=== PATIENT | male | born 1995 | race Caucasian/White ===

== ENCOUNTER 2018-03-06 23:53 | Emergency (ER) | payer OTHER ==
[~2018-03-06] VITALS: Ht 175.3 cm; Wt 140.6 kg
[~2018-03-06 23:53] MED LIST: DOLOGEN CAPLET1 TAB PO; PREVACID30 MG PO; TRAM1TAB98 PO
[2018-03-07] MEDS ORDERED: AMOXICILLIN125 MG (00:21)
[2018-03-07] MEDS ORDERED: CEFUROXIME500 MG PO (02:11)
[2018-03-07] MEDS ORDERED: TUSSIN DM LIQU118 ML PO (02:11)
== END 2018-03-07 02:18 | disposition home or self-care (01) ==
LOC: ER 23:53
DX: J06.9 Acute upper respiratory infection, unspecified (principal)

== ENCOUNTER 2019-01-17 16:15 | Emergency (ER) | payer OTHER ==
[~2019-01-17] VITALS: Ht 175.3 cm; Wt 145.1 kg
[~2019-01-17 16:15] MED LIST changes: +AMOXICILLIN125 MG; +CEFUROXIME500 MG PO; +TUSSIN DM LIQU118 ML PO
== END 2019-01-17 18:42 | disposition home or self-care (01) ==
LOC: ER 16:15
DX: J02.8 Acute pharyngitis due to other specified organisms (principal); H66.91 Otitis media, unspecified, right ear

== ENCOUNTER 2019-01-25 16:12 | Emergency (ER) | payer OTHER ==
[~2019-01-25] VITALS: Ht 175.3 cm; Wt 142.9 kg
== END 2019-01-25 21:51 | disposition home or self-care (01) ==
LOC: ER 16:12
DX: J11.1 Influenza due to unidentified influenza virus with other respiratory manifestations (principal)

== ENCOUNTER 2019-04-18 12:29 | Emergency (ER) | payer OTHER ==
[~2019-04-18] VITALS: Ht 175.3 cm; Wt 140.6 kg
[2019-04-18] MEDS ORDERED: ORPHENADRINE C100 MG PO (16:01)
[2019-04-18] MEDS ORDERED: ZITHROMAX500 MG PO (16:01)
== END 2019-04-18 16:06 | disposition home or self-care (01) ==
LOC: ER 12:29
DX: I10 Essential (primary) hypertension (principal); R51 Headache

== ENCOUNTER 2019-08-14 10:44 | Emergency (ER) | payer OTHER ==
[~2019-08-14] VITALS: Ht 175.3 cm; Wt 140.6 kg
[~2019-08-14 10:44] MED LIST changes: +ORPHENADRINE C100 MG PO; +ZITHROMAX500 MG PO
== END 2019-08-14 13:50 | disposition home or self-care (01) ==
LOC: ER 10:44
DX: B34.9 Viral infection, unspecified (principal)

== ENCOUNTER 2024-11-05 23:06 | Emergency (ER) | payer OTHER ==
[~2024-11-05] VITALS: Ht 175.3 cm; Wt 152.0 kg
[2024-11-05] MEDS ORDERED: DIOVAN160 M1 PO (23:10)
[2024-11-05] MEDS ORDERED: TOPROL XL25 M1 PO (23:10)
[2024-11-06] MEDS ORDERED: PEPCID40 MG PO (00:21)
[2024-11-06] MEDS ORDERED: LEVSIN/SL0.125 MG SL (00:21)
== END 2024-11-06 00:29 | disposition home or self-care (01) ==
LOC: ER 23:08
DX: R10.11 Right upper quadrant pain (principal); Z88.6 Allergy status to analgesic agent

== ENCOUNTER 2024-12-17 22:06 | Emergency (ER) | payer OTHER ==
[~2024-12-17] VITALS: Ht 175.3 cm; Wt 142.9 kg
[~2024-12-17 22:06] MED LIST changes: +DIOVAN160 M1 PO; +LEVSIN/SL0.125 MG SL; +PEPCID40 MG PO; +TOPROL XL25 M1 PO
[2024-12-17] MEDS ORDERED: MORPHINE SULFATE 2 MG/ML SYRINGE IV ONE (23:00)
[2024-12-17] MEDS ORDERED: FAMOtidine 10 MG/ML (4ML VIAL) IV ONE (23:00)
[2024-12-17] MEDS ORDERED: FAMOTIDINE/PF 20 MG/2 ML VIAL ONE (23:10)
[2024-12-18 00:25] LABS: HEMATOCRIT 45.5 % (39.0-48.0); HEMOGLOBIN 15.3 g/dL (13-16.00); MEAN CELL VOLUME 87.4 fL (80.0-100.00); MEAN CORPUSCULAR HEMOGLOBIN 29.4 pg (27.00-32.0); MEAN CORPUSCULAR HGB CONC 33.6 g/dl (32.0-36.0); PLATELET COUNT 317 K/uL (150-450); RED CELL DISTRIBUTION WIDTH 14.9 % (11.5-14.5)
[2024-12-18 00:35] LABS: BILIRUBIN TOTAL 0.46 mg/dL (0.3-1.2); CALCIUM 9.6 mg/dL (8.5-10.1); CREATININE SERUM 0.9 mg/dL (0.70-1.30); GFR 98.42; GLOBULINA 3.7 G/DL (2.4-3.5); POTASSIUM 3.77 mEq/L (3.5-5.1); TOTAL PROTEIN 7.7 gm/dL (6.4-8.2)
[2024-12-18 00:35] LABS: PH,URINE 6.5 (5.0-8.0); URINE APPEARANCE Cloudy; URINE BILIRRUBIN Negative (NEGATIVE); URINE BLOOD Negative; URINE COLOR Yellow; URINE GLUCOSE Negative (NEGATIVE); URINE KETONE Negative (NEGATIVE); URINE LEUKOCYTE Trace; URINE NITRATE Negative; URINE PROTEIN Negative (NEGATIVE)
[2024-12-18 00:39] LABS: URINE BACTERIA 69.7 uL (0.0-1933); URINE EPITHELIAL CELLS 26.7 uL (0.0-38.8); URINE WBC 35.2 uL (0.0-23.2)
[2024-12-18 00:41] LABS: URINE RBC 1.7 uL (0.0-20.8)
[2024-12-18 00:52] LABS: PARTIAL THROMBOPLASTIN TIME 28.3 SECONDS (22.0-34.0); PROTHROMBIN TIME 10.9 SECONDS (9.0-11.5)
== END 2024-12-18 04:15 ==
LOC: ER 22:06
PROVIDERS: General Practice
DX: K80.20 Calculus of gallbladder without cholecystitis without obstruction (principal); K76.0 Fatty (change of) liver, not elsewhere classified; I10 Essential (primary) hypertension; Z88.6 Allergy status to analgesic agent

== ENCOUNTER 2025-02-21 23:39 | Emergency (ER) | payer OTHER ==
[~2025-02-21] VITALS: Ht 175.3 cm; Wt 140.6 kg
[2025-02-22 00:01] VITALS: BP 127/84; O2SAT 97
== END 2025-02-22 | disposition left against medical advice (07) ==
LOC: ER 02-22 01:06
DX: Z53.21 Procedure and treatment not carried out due to patient leaving prior to being seen by health care provider (principal)

== ENCOUNTER → 2025-04-19 | Emergency (ER) | payer OTHER ==
[~2025-04-19] VITALS: Ht 175.3 cm; Wt 142.9 kg
== END | disposition left against medical advice (07) ==
LOC: ER 22:34
DX: Z53.21 Procedure and treatment not carried out due to patient leaving prior to being seen by health care provider (principal)

== ENCOUNTER 2025-05-09 20:25 | Inpatient (IN) | payer OTHER ==
[~2025-05-09] VITALS: Ht 175.3 cm; Wt 140.6 kg
--- NOTE | 2025-05-09 20:43 | NUR ---
PTE ALERTA Y ORIENTADA X3, SE ALMA ROSA S/V. PTE REFIERE TENER DOLOR EN EL FLANKO DERECHO DESDE HACE DOS HORAS. PTE REFIERE QUE TIENE HISTORIAL DE [place]. SE UBICA PTE EN COREY AREA DE OBSERVACION.
[2025-05-09] MEDS ORDERED: ONDANSETRON HCL 2 MG/ML VIAL IV ONE (21:00)
[2025-05-09] MEDS ORDERED: MORPHINE SULFATE 4 MG/ML CARTRIDGE IV ONE ×2 (21:00→23:15)
[2025-05-09] MEDS ORDERED: 0.9 % SODIUM CHLORIDE 1,000 ML IV ONE (21:00)
[2025-05-09] MEDS ORDERED: FAMOtidine 10 MG/ML (4ML VIAL) IV ONE (21:00)
[2025-05-09] MEDS ORDERED: FAMOTIDINE/PF 20 MG/2 ML VIAL ONE (21:47)
[2025-05-09] MEDS ORDERED: ONDANSETRON HCL 2 MG/ML VIAL ONE (21:47)
--- NOTE | 2025-05-09 22:03 | NUR ---
RN.CANCEL ORIENTA PTE SOBRE TRATAMIENTO MEDICO Y SE EJECUTA EN OLMOS TOTALIDAD
[2025-05-09 23:21] LABS: BASO % 0.3 % (0.1-1.2); EOS # 0.04 (0.04-0.54); EOS % 0.2 % (0.7-7.0); LYMPH # 1.20 (1.18-3.74); LYMPH % 6.8 % (19.3-53.1); MEAN PLATELET VOLUME 11.00 fl (9.4-12.4); MONO # 0.78 (0.24-0.82); MONO % 4.4 % (4.7-12.5); NEUT # 15.39 (1.56-6.13); NEUT % 88.0 % (34.0-71.1); RED CELL DISTRIBUTION WIDTH 13.4 % (11.6-14.4)
[2025-05-09] MEDS ORDERED: PIPERACILLIN/TAZOBACTAM SODIUM 3.375 GM VIAL IV ONE ×2 (23:30→23:46)
[2025-05-09 23:40] LABS: INR 1.05
[2025-05-10 00:13] LABS: ALT/SGPT 22.0 U/L (12-78); AST/SGOT 15.0 U/L (15-37); BILIRUBIN TOTAL 0.39 mg/dL (0.3-1.2); BUN CREA RATIO 15.0 (7.0-25.0); CREATININE SERUM 0.89 mg/dL (0.70-1.30); GFR 99.06; GLOBULINA 3.2 G/DL (2.4-3.5); GLUCOSE FASTING 145.0 mg/dL (65-100); OSMOLALITY SERUM 288.0 MOSM/KG (275-295)
[2025-05-10] MEDS ORDERED: 0.9 % SODIUM CHLORIDE 1,000 ML IV SCH ×3 (00:45→21:45)
[2025-05-10] MEDS ORDERED: MORPHINE SULFATE 4 MG/ML CARTRIDGE IV PRN ×2 (00:45→21:45)
[2025-05-10 02:04] LABS: URINE APPEARANCE Clear; URINE BILIRRUBIN Negative (NEGATIVE); URINE BLOOD Negative; URINE COLOR Yellow; URINE GLUCOSE Negative (NEGATIVE); URINE KETONE Trace (NEGATIVE); URINE LEUKOCYTE Negative; URINE NITRATE Negative; URINE PROTEIN 30 (NEGATIVE); URINE UROBILINOGEN 1.0 E.U./dl
[2025-05-10 02:09] LABS: URINE BACTERIA 133.1 uL (0.0-1933); URINE CAST 0.14 uL (0.0-1.40); URINE EPITHELIAL CELLS 22.9 uL (0.0-38.8); URINE RBC 6.3 uL (0.0-20.8); URINE WBC 38.1 uL (0.0-23.2)
[2025-05-10] MEDS ORDERED: MORPHINE SULFATE 4 MG/ML CARTRIDGE IV STA (03:28)
[2025-05-10] MEDS ORDERED: PIPERACILLIN/TAZOBACTAM SODIUM 3.375 GM VIAL IV ONE (05:15)
[2025-05-10] MEDS ORDERED: PIPERACILLIN/TAZOBACTAM SODIUM 3.375 GM in 0.9 % SODIUM CHLORIDE 100 ML IV SCH (06:00)
--- NOTE | 2025-05-10 07:26 | NUR ---
SE RECIBE PTE MASCULINO DE 30 YRS ALERTA CONCIENTE Y TRANQUILO EN COREY CON BARANDAS ELEVADA., SE OBSERVA DORMINDO Y AL MOMENTO ANA LUISA DE DOLOR, SE OBSERVA CON .9NSS A 60 ML HRS PATENTE Y ANA LUISA DE DOLOR. SE MANTIENE CONSULTADO CON EL DR, [place] Y JOHNNY ESCOLAR, SE MANTIENE BAJO OBSERVACION.
[2025-05-10] MEDS ORDERED: METOPROLOL SUCCINATE 25 MG TAB.SR.24H PO SCH (09:24)
[2025-05-10] MEDS ORDERED: ONDANSETRON HCL 4 MG in 0.9 % SODIUM CHLORIDE 50 ML IV PRN (09:30)
[2025-05-10] MEDS ORDERED: ACETAMINOPHEN 500 MG GEL..CAP PO PRN (09:30)
[2025-05-10] MEDS ORDERED: ENALAPRILAT DIHYDRATE 1.25 MG/ML VIAL IV PRN (09:30)
[2025-05-10] MEDS ORDERED: ONDANSETRON HCL 2 MG/ML VIAL ONE (10:31)
[2025-05-10 10:43] VITALS: BP 145/90; O2SAT 100
[2025-05-10 13:00] VITALS: BP 155/86; O2SAT 97
[2025-05-10 18:07] VITALS: BP 164/101; O2SAT 100
[2025-05-10 20:12] VITALS: BP 157/93; O2SAT 97
[2025-05-10] MEDS ORDERED: ONDANSETRON HCL 2 MG/ML VIAL IV PRN (21:45)
[2025-05-10] MEDS ORDERED: SUGAMMADEX SODIUM 200 MG/2 ML VIAL IV ONE (22:20)
[2025-05-11] MEDS ORDERED: PIPERACILLIN/TAZOBACTAM SODIUM 3.375 GM VIAL IV ONE (00:28)
[2025-05-11 03:08] VITALS: BP 143/78
[2025-05-11] MEDS ORDERED: FAMOTIDINE/PF 20 MG in 0.9 % SODIUM CHLORIDE 8 ML IV PUSH SCH (09:00)
[2025-05-11 09:33] VITALS: BP 130/80; O2SAT 97
[2025-05-11 12:32] LABS: BASO % 0.3 % (0.1-1.2); EOS # 0.07 (0.04-0.54); EOS % 0.5 % (0.7-7.0); LYMPH # 1.86 (1.18-3.74); LYMPH % 13.5 % (19.3-53.1); MEAN PLATELET VOLUME 11.70 fl (9.4-12.4); MONO # 1.48 (0.24-0.82); MONO % 10.8 % (4.7-12.5); NEUT # 10.26 (1.56-6.13); NEUT % 74.5 % (34.0-71.1); RED CELL DISTRIBUTION WIDTH 14.1 % (11.6-14.4)
[2025-05-11 13:20] LABS: ALT/SGPT 211.0 U/L (12-78); AST/SGOT 130.0 U/L (15-37); BILIRUBIN TOTAL 1.16 mg/dL (0.3-1.2); BUN CREA RATIO 10.0 (7.0-25.0); CREATININE SERUM 0.82 mg/dL (0.70-1.30); GFR 108.88; GLOBULINA 3.1 G/DL (2.4-3.5); GLUCOSE FASTING 82.0 mg/dL (65-100); OSMOLALITY SERUM 279.0 MOSM/KG (275-295)
[2025-05-11 19:30] VITALS: BP 155/84; O2SAT 98
[2025-05-12 03:41] VITALS: BP 173/92; O2SAT 95
[2025-05-12 09:28] VITALS: BP 145/90
== END 2025-05-12 11:31 | disposition home or self-care (01) | DRG 419 ==
LOC: ER 20:25 → MEDI 05-10 09:52 → SEC-K 05-10 09:52 → MEDI 05-10 10:42
PROVIDERS: General Practice; Surgery; ADMIT Internal Medicine; ATTEND Internal Medicine
PROC: 0WQF4ZZ Repair Abdominal Wall, Percutaneous Endoscopic Approach (ICD-10-PCS; 2025-05-10)
PROC: BW21ZZZ Computerized Tomography (CT Scan) of Abdomen and Pelvis (ICD-10-PCS; 2025-05-10)
PROC: BW40ZZZ Ultrasonography of Abdomen (ICD-10-PCS; 2025-05-10)
PROC: 0FT44ZZ Resection of Gallbladder, Percutaneous Endoscopic Approach (ICD-10-PCS; principal; 2025-05-10 21:30)
DX: K80.00 Calculus of gallbladder with acute cholecystitis without obstruction (principal); K82.A1 Gangrene of gallbladder in cholecystitis; K43.9 Ventral hernia without obstruction or gangrene

== ENCOUNTER 2025-08-06 15:55 | Emergency (ER) | payer OTHER ==
[~2025-08-06] VITALS: Ht 175.3 cm; Wt 138.8 kg
[2025-08-06] MEDS ORDERED: 0.9 % SODIUM CHLORIDE 1,000 ML IV ONE (17:45)
[2025-08-06] MEDS ORDERED: HYOSCYAMINE SULFATE 0.125 MG TAB.SUBL PO ONE (17:45)
[2025-08-06] MEDS ORDERED: ONDANSETRON HCL 4 MG in 0.9 % SODIUM CHLORIDE 50 ML IV ONE (17:45)
[2025-08-06] MEDS ORDERED: HYOSCYAMINE SULFATE 0.125 MG TAB.SUBL ONE (17:51)
[2025-08-06] MEDS ORDERED: ONDANSETRON HCL 2 MG/ML VIAL ONE (17:51)
[2025-08-06 18:55] LABS: BASO % 0.5 % (0.1-1.2); EOS # 0.19 (0.04-0.54); EOS % 1.3 % (0.7-7.0); LYMPH # 2.10 (1.18-3.74); LYMPH % 14.0 % (19.3-53.1); MEAN PLATELET VOLUME 10.60 fl (9.4-12.4); MONO # 1.39 (0.24-0.82); MONO % 9.3 % (4.7-12.5); NEUT # 11.21 (1.56-6.13); NEUT % 74.6 % (34.0-71.1); RED CELL DISTRIBUTION WIDTH 13.8 % (11.6-14.4)
[2025-08-06 19:02] LABS: ERYTHROCYTE SEDIMENTATION RATE 46 mm/hr (0-15)
[2025-08-06 19:27] LABS: URINE APPEARANCE Clear; URINE BILIRRUBIN Negative (NEGATIVE); URINE BLOOD Negative; URINE COLOR Yellow; URINE GLUCOSE Negative (NEGATIVE); URINE KETONE Negative (NEGATIVE); URINE LEUKOCYTE Negative; URINE NITRATE Negative; URINE PROTEIN Negative (NEGATIVE); URINE UROBILINOGEN 1.0 E.U./dl
[2025-08-06 19:31] LABS: URINE BACTERIA 18.3 uL (0.0-1933); URINE EPITHELIAL CELLS 7.5 uL (0.0-38.8); URINE WBC 6.1 uL (0.0-23.2)
[2025-08-06 19:34] LABS: URINE CAST 0.28 uL (0.0-1.40); URINE RBC 0.8 uL (0.0-20.8)
[2025-08-06 19:42] LABS: COVID-19 AG NEGATIVE (NEGATIVE)
[2025-08-06 21:46] LABS: INR 1.09
[2025-08-06 21:52] LABS: ALT/SGPT 26.0 U/L (12-78); AST/SGOT 16.0 U/L (15-37); BILIRUBIN TOTAL 0.72 mg/dL (0.3-1.2); BUN CREA RATIO 23.0 (7.0-25.0); CREATININE SERUM 0.73 mg/dL (0.70-1.30); GFR 124.51; GLOBULINA 4.4 G/DL (2.4-3.5); GLUCOSE FASTING 112.0 mg/dL (65-100); OSMOLALITY SERUM 282.0 MOSM/KG (275-295)
[2025-08-06] MEDS ORDERED: LEVSIN/SL0.125 MG SL (22:51)
[2025-08-06] MEDS ORDERED: CARAFATE1 GM PO (22:51)
[2025-08-06] MEDS ORDERED: AMOX-CLAV 875-1 EACH PO (22:51)
[2025-08-06] MEDS ORDERED: PROTONIX40 MG PO (22:51)
[2025-08-06] MEDS ORDERED: PEPCID AC20 MG PO (22:51)
== END 2025-08-06 23:25 | disposition home or self-care (01) ==
LOC: ER 15:56
PROVIDERS: General Practice
DX: R10.13 Epigastric pain (principal); Z20.822 Contact with and (suspected) exposure to COVID-19; Z88.6 Allergy status to analgesic agent

== ENCOUNTER 2025-08-09 17:38 | Emergency (ER) | payer OTHER ==
[~2025-08-09] VITALS: Ht 175.3 cm; Wt 140.6 kg
[~2025-08-09 17:38] MED LIST changes: +AMOX-CLAV 875-1 EACH PO; +CARAFATE1 GM PO; +PEPCID AC20 MG PO; +PROTONIX40 MG PO
[2025-08-09 18:40] VITALS: BP 144/90; O2SAT 96
[2025-08-09] MEDS ORDERED: ORPHENADRINE CITRATE 30 MG/ML AMPUL IM ONE (19:15)
[2025-08-09] MEDS ORDERED: ORPHENADRINE CITRATE 30 MG/ML AMPUL ONE (20:28)
[2025-08-09 21:00] LABS: BASO % 0.4 % (0.1-1.2); EOS # 0.11 (0.04-0.54); EOS % 0.8 % (0.7-7.0); LYMPH # 2.09 (1.18-3.74); LYMPH % 15.6 % (19.3-53.1); MEAN PLATELET VOLUME 10.50 fl (9.4-12.4); MONO # 1.09 (0.24-0.82); MONO % 8.1 % (4.7-12.5); NEUT # 10.02 (1.56-6.13); NEUT % 74.8 % (34.0-71.1); RED CELL DISTRIBUTION WIDTH 13.2 % (11.6-14.4)
[2025-08-09 21:17] LABS: INR 1.12
[2025-08-09 21:31] LABS: ALT/SGPT 33.0 U/L (12-78); AST/SGOT 29.0 U/L (15-37); BILIRUBIN TOTAL 0.98 mg/dL (0.3-1.2); BILIRUBIN,CONJUGATED 0.3 mg/dL (0.0-0.2); BUN CREA RATIO 16.0 (7.0-25.0); CREATININE SERUM 0.7 mg/dL (0.70-1.30); GFR 130.69; GLOBULINA 4.1 G/DL (2.4-3.5); GLUCOSE FASTING 91.0 mg/dL (65-100); OSMOLALITY SERUM 278.0 MOSM/KG (275-295)
[2025-08-09 21:35] LABS: URINE APPEARANCE Clear; URINE BILIRRUBIN Moderate (NEGATIVE); URINE BLOOD Negative; URINE COLOR Dark Yellow; URINE GLUCOSE Negative (NEGATIVE); URINE LEUKOCYTE Trace; URINE NITRATE Negative; URINE PROTEIN 30 (NEGATIVE); URINE UROBILINOGEN 1.0 E.U./dl
[2025-08-09 21:39] LABS: URINE BACTERIA 27.4 uL (0.0-1933); URINE EPITHELIAL CELLS 18.5 uL (0.0-38.8); URINE RBC 3.3 uL (0.0-20.8); URINE WBC 13.3 uL (0.0-23.2)
[2025-08-09 21:52] LABS: URINE CAST 0.28 uL (0.0-1.40); URINE CRYSTALS FEW /HPF; URINE KETONE >=160 (NEGATIVE)
[2025-08-09 21:53] LABS: TYPE CELLS SQUAMOUS; URINE MUCUS MODERATE
[2025-08-09] MEDS ORDERED: AMOX1TAB5 PO (22:57)
[2025-08-09] MEDS ORDERED: LEVSIN/SL0.125 MG SL (22:57)
[2025-08-09] MEDS ORDERED: PEPCID AC20 MG PO (22:57)
[2025-08-09] MEDS ORDERED: NORFLEX100MG PO (22:57)
== END 2025-08-09 23:01 | disposition home or self-care (01) ==
LOC: ER 17:39
PROVIDERS: General Practice
DX: R10.13 Epigastric pain (principal); Z88.6 Allergy status to analgesic agent; I10 Essential (primary) hypertension